=== PATIENT | male | born 1955 | race Caucasian/White ===

== ENCOUNTER 2018-01-05 11:20 | Inpatient (IN) | payer OTHER ==
[~2018-01-05] VITALS: Ht 180.3 cm; Wt 73.7 kg
[~2018-01-05 11:20] MED LIST: OXYCODONE HCL10 MG PO; PERCOCET 10/1 TABLET PO
[2018-01-05 12:12] LABS: BASOPHIL (%) 0.3 % (0-1); EOSINOPHIL (%) 1.3 % (0-5); EOSINOPHIL COUNT 0.1 K/uL (0-0.3); HEMATOCRIT 30.7 % (38.0-50.0); HEMOGLOBIN 11.5 G/DL (12.5-16.6); IMMATURE GRANULOCYTE (%) 1.5 % (0.0-0.7); LYMPHOCYTE (%) 15.2 % (15-42); LYMPHOCYTE COUNT 0.9 K/uL (1.0-2.8); MCH 33.9 PG (29.0-34.0); MCHC 37.5 G/DL (30.0-36.0); MCV 90.6 FL (86-99); MONOCYTE (%) 19.1 % (3-12); MONOCYTE COUNT 1.2 K/uL (0-0.8); NEUTROPHIL (%) 62.6 % (45-76); NEUTROPHIL COUNT 3.8 K/uL (1.8-6.4); PLATELET COUNT 347 K/uL (156-360); RBC DIS.WIDTH-CV 12.7 % (11.8-14.6); RBC DIS.WIDTH-SD 41.8 % (39-53); RED BLOOD COUNT 3.39 M/uL (4.00-5.50); WHITE BLOOD COUNT 6.1 K/uL (4.1-10.2)
[2018-01-05 12:28] LABS: ALBUMIN 3.9 g/dL (3.2-4.8); CHLORIDE 76 mEq/L (99-109); POTASSIUM 4.5 mEq/L (3.7-5.4)
[2018-01-05 12:30] LABS: GLUCOSE 104 mg/dL (70-99)
[2018-01-05 12:32] LABS: TOTAL BILIRUBIN 0.8 mg/dL (0.0-1.0)
[2018-01-05 12:33] LABS: SERUM ETHYL ALCOHOL 30 mg/dL
[2018-01-05 12:34] LABS: ALKALINE PHOSPHATASE 129 IU/L (3-129); CREATININE 1.5 mg/dL (0.6-1.3); GFR ESTIMATE (CALCULATED) 51 mL/min/ (58.99-99999)
[2018-01-05 12:35] LABS: UREA NITROGEN (BUN) 21 mg/dL (9-23)
[2018-01-05 12:36] LABS: AST (GOT) 43 IU/L (2-34)
[2018-01-05 12:37] LABS: ALT (GPT) 26 IU/L (3-49); TROP-I INTERPRETATION NEGATIVE; TROPONIN-I < 0.01 ng/mL (0.0-0.30)
[2018-01-05 12:42] LABS: SODIUM 111 mEq/L (136-147)
[2018-01-05 14:27] LABS: APPEARANCE CLEAR ((CLEAR)); BILIRUBIN NEGATIVE; BLOOD NEGATIVE; COLOR STRAW ((YELLOW)); GLUCOSE (STRIP) NEGATIVE; KETONES NEGATIVE; LEUKOCYTES NEGATIVE; NITRITE NEGATIVE; PROTEIN (STRIP) NEGATIVE; SPECIFIC GRAVITY 1.004 (1.000-1.030); UCUL ADDED? NO; UROBILINOGEN 0.2 MG/DL (0.2-1.0)
[2018-01-05] MEDS ORDERED: DICLOFENAC SODI75 MG PO (14:50)
[2018-01-05] MEDS ORDERED: AMLODIPINE BESY10 MG PO (14:50)
[2018-01-05] MEDS ORDERED: LYRICA150 MG PO (14:50)
[2018-01-05] MEDS ORDERED: LISINOPRIL40 MG PO (14:51)
[2018-01-05] MEDS ORDERED: CHLORTHALIDONE50 MG PO (14:51)
[2018-01-05] MEDS ORDERED: OXYCODONE HCL E10 MG PO (15:22)
[2018-01-05 17:02] VITALS: BP 108/59
[2018-01-05 19:14] LABS: CHLORIDE 80 MEQ/L (99-109); CREATININE 1.2 MG/DL (0.6-1.3); GFR ESTIMATE (CALCULATED) > 59 mL/min/ (58.99-99999); GLUCOSE 119 mg/dL (70-99); POTASSIUM 4.1 MEQ/L (3.7-5.4); UREA NITROGEN (BUN) 18 mg/dL (9-23)
[2018-01-05 19:27] LABS: SODIUM 114 MEQ/L (136-147)
[2018-01-05 20:19] VITALS: BP 95/52
[2018-01-05 21:30] LABS: CHLORIDE 83 MEQ/L (99-109); CREATININE 1.1 MG/DL (0.6-1.3); GFR ESTIMATE (CALCULATED) > 59 mL/min/ (58.99-99999); GLUCOSE 117 mg/dL (70-99); POTASSIUM 4.1 MEQ/L (3.7-5.4); UREA NITROGEN (BUN) 23 mg/dL (9-23)
[2018-01-05 21:36] LABS: SODIUM 114 MEQ/L (136-147)
[2018-01-06] VITALS (7 sets, daily range): BP systolic 96–139; BP diastolic 52–76
[2018-01-06 00:58] LABS: POTASSIUM 4.3 mEq/L (3.7-5.4)
[2018-01-06 01:00] LABS: GLUCOSE 120 mg/dL (70-99)
[2018-01-06 01:04] LABS: CREATININE 1.1 mg/dL (0.6-1.3); GFR ESTIMATE (CALCULATED) > 59 mL/min/ (58.99-99999)
[2018-01-06 01:05] LABS: UREA NITROGEN (BUN) 21 mg/dL (9-23)
[2018-01-06 01:13] LABS: CHLORIDE 85 mEq/L (99-109); SODIUM 117 mEq/L (136-147)
[2018-01-06 03:27] LABS: CHLORIDE 87 mEq/L (99-109); POTASSIUM 4.5 mEq/L (3.7-5.4)
[2018-01-06 03:29] LABS: GLUCOSE 107 mg/dL (70-99)
[2018-01-06 03:33] LABS: GFR ESTIMATE (CALCULATED) > 59 mL/min/ (58.99-99999)
[2018-01-06 03:34] LABS: SODIUM 119 mEq/L (136-147); UREA NITROGEN (BUN) 20 mg/dL (9-23)
[2018-01-06 06:23] LABS: CHLORIDE 87 MEQ/L (99-109); GFR ESTIMATE (CALCULATED) > 59 mL/min/ (58.99-99999); GLUCOSE 98 mg/dL (70-99); PHOSPHORUS 3.3 mg/dL (2.5-4.9); POTASSIUM 4.7 MEQ/L (3.7-5.4); SODIUM 121 MEQ/L (136-147); UREA NITROGEN (BUN) 18 mg/dL (9-23); URIC ACID 4.8 mg/dL (3.1-9.2)
[2018-01-06 09:19] LABS: CHLORIDE 87 MEQ/L (99-109); GFR ESTIMATE (CALCULATED) > 59 mL/min/ (58.99-99999); POTASSIUM 4.4 MEQ/L (3.7-5.4); SODIUM 122 MEQ/L (136-147); UREA NITROGEN (BUN) 18 mg/dL (9-23)
[2018-01-06 09:21] LABS: GLUCOSE 155 mg/dL (70-99)
[2018-01-06 13:24] LABS: CHLORIDE 88 MEQ/L (99-109); GFR ESTIMATE (CALCULATED) > 59 mL/min/ (58.99-99999); GLUCOSE 128 mg/dL (70-99); POTASSIUM 4.1 MEQ/L (3.7-5.4); SODIUM 123 MEQ/L (136-147); UREA NITROGEN (BUN) 15 mg/dL (9-23)
[2018-01-06 16:21] LABS: CHLORIDE 87 MEQ/L (99-109); GFR ESTIMATE (CALCULATED) > 59 mL/min/ (58.99-99999); GLUCOSE 163 mg/dL (70-99); POTASSIUM 4.2 MEQ/L (3.7-5.4); SODIUM 120 MEQ/L (136-147); UREA NITROGEN (BUN) 16 mg/dL (9-23)
[2018-01-06 18:44] LABS: CHLORIDE 86 MEQ/L (99-109); GFR ESTIMATE (CALCULATED) > 59 mL/min/ (58.99-99999); GLUCOSE 169 mg/dL (70-99); POTASSIUM 4.1 MEQ/L (3.7-5.4); SODIUM 121 MEQ/L (136-147); UREA NITROGEN (BUN) 14 mg/dL (9-23)
[2018-01-06 21:24] LABS: CHLORIDE 87 MEQ/L (99-109); CREATININE 1.3 MG/DL (0.6-1.3); GFR ESTIMATE (CALCULATED) > 59 mL/min/ (58.99-99999); POTASSIUM 4.3 MEQ/L (3.7-5.4); SODIUM 122 MEQ/L (136-147); UREA NITROGEN (BUN) 16 mg/dL (9-23)
[2018-01-06 21:43] LABS: GLUCOSE 99 mg/dL (70-99)
[2018-01-07 02:53] LABS: CHLORIDE 84 mEq/L (99-109); POTASSIUM 4.2 mEq/L (3.7-5.4); SODIUM 120 mEq/L (136-147)
[2018-01-07 02:55] LABS: GLUCOSE 101 mg/dL (70-99)
[2018-01-07 02:59] LABS: GFR ESTIMATE (CALCULATED) > 59 mL/min/ (58.99-99999)
[2018-01-07 03:00] LABS: UREA NITROGEN (BUN) 12 mg/dL (9-23)
[2018-01-07 04:30] VITALS: BP 115/62
[2018-01-07 06:16] LABS: CHLORIDE 85 MEQ/L (99-109); CREATININE 0.9 MG/DL (0.6-1.3); GFR ESTIMATE (CALCULATED) > 59 mL/min/ (58.99-99999); GLUCOSE 102 mg/dL (70-99); SODIUM 120 MEQ/L (136-147); UREA NITROGEN (BUN) 12 mg/dL (9-23)
[2018-01-07 08:30] VITALS: BP 151/77
[2018-01-07 09:29] LABS: CHLORIDE 86 MEQ/L (99-109); CREATININE 0.9 MG/DL (0.6-1.3); GFR ESTIMATE (CALCULATED) > 59 mL/min/ (58.99-99999); GLUCOSE 105 mg/dL (70-99); POTASSIUM 4.6 MEQ/L (3.7-5.4); SODIUM 120 MEQ/L (136-147); UREA NITROGEN (BUN) 11 mg/dL (9-23)
[2018-01-07 12:28] VITALS: BP 115/60
[2018-01-07 14:32] LABS: CHLORIDE 84 MEQ/L (99-109); CREATININE 0.8 MG/DL (0.6-1.3); GFR ESTIMATE (CALCULATED) > 59 mL/min/ (58.99-99999); GLUCOSE 96 mg/dL (70-99); POTASSIUM 4.3 MEQ/L (3.7-5.4); SODIUM 120 MEQ/L (136-147); UREA NITROGEN (BUN) 11 mg/dL (9-23)
[2018-01-07 15:12] LABS: CHLORIDE 84 MEQ/L (99-109); CREATININE 0.9 MG/DL (0.6-1.3); GFR ESTIMATE (CALCULATED) > 59 mL/min/ (58.99-99999); GLUCOSE 143 mg/dL (70-99); POTASSIUM 3.6 MEQ/L (3.7-5.4); SODIUM 120 MEQ/L (136-147); UREA NITROGEN (BUN) 11 mg/dL (9-23)
[2018-01-07 16:21] VITALS: BP 152/73
[2018-01-07 18:36] LABS: CHLORIDE 84 MEQ/L (99-109); CREATININE 0.8 MG/DL (0.6-1.3); GFR ESTIMATE (CALCULATED) > 59 mL/min/ (58.99-99999); GLUCOSE 129 mg/dL (70-99); SODIUM 120 MEQ/L (136-147); UREA NITROGEN (BUN) 10 mg/dL (9-23)
[2018-01-07 20:59] VITALS: BP 135/70
[2018-01-07 21:31] LABS: CHLORIDE 84 MEQ/L (99-109); POTASSIUM 4.2 MEQ/L (3.7-5.4)
[2018-01-07 21:36] LABS: SODIUM 119 MEQ/L (136-147)
[2018-01-07 21:59] LABS: CREATININE 0.8 MG/DL (0.6-1.3); GFR ESTIMATE (CALCULATED) > 59 mL/min/ (58.99-99999); GLUCOSE 130 mg/dL (70-99); UREA NITROGEN (BUN) 10 mg/dL (9-23)
[2018-01-08] VITALS (7 sets, daily range): BP systolic 105–155; BP diastolic 58–79
[2018-01-08 01:23] LABS: CHLORIDE 86 mEq/L (99-109); POTASSIUM 4.1 mEq/L (3.7-5.4); SODIUM 122 mEq/L (136-147)
[2018-01-08 01:24] LABS: GLUCOSE 101 mg/dL (70-99)
[2018-01-08 01:28] LABS: CREATININE 0.8 mg/dL (0.6-1.3); GFR ESTIMATE (CALCULATED) > 59 mL/min/ (58.99-99999)
[2018-01-08 01:29] LABS: UREA NITROGEN (BUN) 9 mg/dL (9-23)
[2018-01-08 06:10] LABS: CHLORIDE 87 MEQ/L (99-109); CREATININE 0.8 MG/DL (0.6-1.3); GFR ESTIMATE (CALCULATED) > 59 mL/min/ (58.99-99999); GLUCOSE 105 mg/dL (70-99); SODIUM 121 MEQ/L (136-147); UREA NITROGEN (BUN) 8 mg/dL (9-23)
[2018-01-08 10:57] LABS: CHLORIDE 87 MEQ/L (99-109); CREATININE 0.9 MG/DL (0.6-1.3); GFR ESTIMATE (CALCULATED) > 59 mL/min/ (58.99-99999); GLUCOSE 104 mg/dL (70-99); SODIUM 124 MEQ/L (136-147); UREA NITROGEN (BUN) 8 mg/dL (9-23)
[2018-01-08 14:14] LABS: CHLORIDE 88 MEQ/L (99-109); CREATININE 0.9 MG/DL (0.6-1.3); GFR ESTIMATE (CALCULATED) > 59 mL/min/ (58.99-99999); GLUCOSE 133 mg/dL (70-99); SODIUM 124 MEQ/L (136-147); UREA NITROGEN (BUN) 9 mg/dL (9-23)
[2018-01-08 19:04] LABS: CHLORIDE 88 MEQ/L (99-109); CREATININE 0.9 MG/DL (0.6-1.3); GFR ESTIMATE (CALCULATED) > 59 mL/min/ (58.99-99999); GLUCOSE 186 mg/dL (70-99); POTASSIUM 3.7 MEQ/L (3.7-5.4); SODIUM 123 MEQ/L (136-147); UREA NITROGEN (BUN) 10 mg/dL (9-23)
[2018-01-08 22:38] LABS: CHLORIDE 88 MEQ/L (99-109); CREATININE 0.9 MG/DL (0.6-1.3); GFR ESTIMATE (CALCULATED) > 59 mL/min/ (58.99-99999); POTASSIUM 4.1 MEQ/L (3.7-5.4); SODIUM 125 MEQ/L (136-147); UREA NITROGEN (BUN) 10 mg/dL (9-23)
[2018-01-08 22:48] LABS: GLUCOSE 96 mg/dL (70-99)
[2018-01-09 03:06] VITALS: BP 121/63
[2018-01-09 06:33] LABS: CHLORIDE 91 MEQ/L (99-109); CREATININE 0.8 MG/DL (0.6-1.3); GFR ESTIMATE (CALCULATED) > 59 mL/min/ (58.99-99999); GLUCOSE 95 mg/dL (70-99); POTASSIUM 4.2 MEQ/L (3.7-5.4); SODIUM 127 MEQ/L (136-147); UREA NITROGEN (BUN) 9 mg/dL (9-23)
[2018-01-09 07:38] VITALS: BP 142/67
[2018-01-09 11:36] VITALS: BP 125/66
[2018-01-09 17:10] VITALS: BP 160/84
[2018-01-09 19:03] VITALS: BP 134/67
[2018-01-09 20:19] LABS: CHLORIDE 92 MEQ/L (99-109); CREATININE 0.8 MG/DL (0.6-1.3); GFR ESTIMATE (CALCULATED) > 59 mL/min/ (58.99-99999); GLUCOSE 160 mg/dL (70-99); POTASSIUM 4.3 MEQ/L (3.7-5.4); SODIUM 128 MEQ/L (136-147); UREA NITROGEN (BUN) 11 mg/dL (9-23)
[2018-01-09 22:56] VITALS: BP 133/69
[2018-01-10 07:45] VITALS: BP 153/72
[2018-01-10 12:11] LABS: CHLORIDE 95 MEQ/L (99-109); CREATININE 0.9 MG/DL (0.6-1.3); GFR ESTIMATE (CALCULATED) > 59 mL/min/ (58.99-99999); GLUCOSE 131 mg/dL (70-99); POTASSIUM 4.1 MEQ/L (3.7-5.4); SODIUM 129 MEQ/L (136-147); UREA NITROGEN (BUN) 9 mg/dL (9-23)
[2018-01-10] MEDS ORDERED: OXYCODONE HCL10 MG PO (13:15)
[2018-01-10 14:31] LABS: CHLORIDE 93 MEQ/L (99-109); SODIUM 129 MEQ/L (136-147)
[2018-01-10 14:37] LABS: CREATININE 0.9 MG/DL (0.6-1.3); GFR ESTIMATE (CALCULATED) > 59 mL/min/ (58.99-99999); GLUCOSE 109 mg/dL (70-99); UREA NITROGEN (BUN) 9 mg/dL (9-23)
== END 2018-01-10 15:17 | disposition home or self-care (01) | DRG 683 ==
LOC: EME 11:20 → EDOF 14:12 → 4EAST 14:12 → ENRESERV 14:15 → 4EAST 16:49 → ENRESERV 01-08 16:52 → ENRESERVTM 01-08 20:51 → ENRESERV 01-08 20:52 → 5EAST 01-08 22:00
PROVIDERS: Emergency Medicine; Internal Medicine Nephrology
PROC: HZ2ZZZZ Detoxification Services for Substance Abuse Treatment (ICD-10-PCS; principal; 2018-01-05)
DX: N17.9 Acute kidney failure, unspecified (principal); E87.1 Hypo-osmolality and hyponatremia; T50.2X5A Adverse effect of carbonic-anhydrase inhibitors, benzothiadiazides and other diuretics, initial encounter; E86.0 Dehydration; I95.9 Hypotension, unspecified; R27.0 Ataxia, unspecified; F10.20 Alcohol dependence, uncomplicated; I10 Essential (primary) hypertension; F32.9 Major depressive disorder, single episode, unspecified; R29.6 Repeated falls; G89.29 Other chronic pain; M54.9 Dorsalgia, unspecified; D64.9 Anemia, unspecified; M19.90 Unspecified osteoarthritis, unspecified site; F17.200 Nicotine dependence, unspecified, uncomplicated
CPT/HCPCS: 70450; 71045; 76770; 80048; 80048 91; 80053; 81003; 82140; 82533 91; 83605; 83930; 83935; 84100; 84300; 84484; 84550; 85025; 87040; 93005; 99281; 99284; G0480; J1644; J2597; J7030; J7060; J7070